=== PATIENT | female | born 1955 | race Caucasian/White ===

== ENCOUNTER 2019-02-03 11:04 | Emergency (ER) | payer OTHER, MEDICAID ==
[~2019-02-03] VITALS: Ht 167.6 cm; Wt 68.0 kg
[2019-02-03 11:14] VITALS: BP 96/44
--- NOTE | 2019-02-03 11:23 | NUR ---
PT AMBLATED TO LOBBY.
--- NOTE | 2019-02-03 11:58 | NUR ---
PT AMB TO ER BED 2
--- NOTE | 2019-02-03 12:07 | NUR ---
PT BIB SELF WITH C/O ZIYAD KNEE , BACK & NECK PAIN . PT STATED TO HAVE CHRONIC PAIN MANY YEARS. MED HX: LEFT KNEE SURGERY, LAMINECTOMY OF C6, OSTEOARTHRITIS. STATES TO HAVE RA . PT STATES HAVING APPOINTMENT FOR PRE-OPERATIVE KNEE REPLACEMENT PROCEDURE TOMORROW. PCP SENT THE PT TO VISIT ER. PT TAKING IBUPROFEN AT HOME FOR PAIN, WAS OFF FROM PAIN MEDS WEEKS AGO BY PCP. DENIES ANY ALLERGIC TO MEDS . PT SITTING ON CHAIR. FEELS COMFORTABLE TO SIT IN CHAIR. WILL CONTINUE TO MONITOR PT. HX- RA
[2019-02-03] MEDS ORDERED: KETOROLAC 60 MG/2 ML VIAL IM ONE (13:35)
[2019-02-03] MEDS ORDERED: HYDROcodone/APAP 5/325 MG 1 TAB TAB PO ONE (13:35)
--- NOTE | 2019-02-03 14:34 | NUR ---
Patient discharged with v/s stable. Written and verbal after care instructions given and explained. Patient alert, oriented and verbalized understanding of instructions. Ambulatory with steady gait. All questions addressed prior to discharge. ID band removed. Patient advised to follow up with PMD. Rx of NAPROSYN given. Patient educated on indication of medication including possible reaction and side effects. Opportunity to ask questions provided and answered. 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
[2019-02-03 14:37] VITALS: BP 100/52
== END 2019-02-03 14:37 | disposition home or self-care (01) ==
LOC: MED 11:04
DX: M25.561 Pain in right knee (principal); M25.562 Pain in left knee; G89.4 Chronic pain syndrome
CPT/HCPCS: 96372; 99283; J1885

== ENCOUNTER 2019-04-16 16:10 | Emergency (ER) | payer OTHER, MEDICAID ==
[~2019-04-16] VITALS: Ht 165.1 cm; Wt 72.6 kg
[2019-04-16 16:29] VITALS: BP 118/81
--- NOTE | 2019-04-16 16:40 | NUR ---
PT TAKEN TO BED 9.
--- NOTE | 2019-04-16 16:46 | NUR ---
PT BIB SELF TO THE ED WITH THE CHIEF C/O ABNORMAL LAB RESULTS. PT WENT PCP FOR REGULAR CHECK UP TODAY AND WAS INSTRUCTED TO COME INTO ER BECAUSE BLOOD WORK ON 04/13/19 SHOWED ELEVATED SERUM CREATININE 3.39 AND GFR 13.7. PT DENIES ANY S/S OR DISCOMFORT. NO DISTRESS NOTED. DENIES PAIN AT THIS TIME. PT ALERT AND AWAKE. PATIENT STATES "I FEEL FINE, I DONT KNOW WHY MY DOCTOR SAID I HAVE TO COME, I DONT WANT TO EVEN BE HERE". PT AMBULATES WITH STEADY GAIT. SITTING IN CHAIR IN ROOM. PMH: CHRONIC ARTHRITIS RX: NORCO, GABAPENTINE, SLEEPING PILLS NKA
--- NOTE | 2019-04-16 16:54 | NUR ---
DR ANDERSON AT BEDSIDE
--- NOTE | 2019-04-16 17:12 | NUR ---
LAB AT BEDSIDE
[2019-04-16 17:27] LABS: BASOPHILS # (AUTO) 0.1 K/uL (0.00-0.22); BASOPHILS % (AUTO) 1.2 % (0.0-2.0); EOSINOPHILS # (AUTO) 0.1 K/uL (0-0.4); EOSINOPHILS % (AUTO) 1.4 % (0.0-4.0); HEMATOCRIT 35.9 % (36-48); HEMOGLOBIN 11.9 g/dL (12.0-16.0); LYMPHOCYTES # (AUTO) 1.8 K/uL (2.5-16.5); MEAN CORPUSCULAR HEMOGLOBIN 31 pg (27-31); MEAN CORPUSCULAR HGB CONC 33 g/dL (33-37); MONOCYTES # (AUTO) 0.5 K/uL (0.8-1.0); MONOCYTES % (AUTO) 8.5 % (1.7-9.3); NEUTROPHILS # (AUTO) 3.3 K/uL (1.8-7.7); NEUTROPHILS % (AUTO) 57.9 % (42.2-75.2); PLATELET COUNT (AUTO) 265 K/uL (140-450); RED BLOOD CELL COUNT(AUTO) 3.82 MIL/uL (4.20-5.40); RED CELL DISTRIBUTION WIDTH 14.1 % (11.6-13.7); WHITE BLOOD COUNT (AUTO) 5.7 K/uL (4.8-10.8)
[2019-04-16 17:41] LABS: ANION GAP 12.7 (8-16); CARBON DIOXIDE 28.8 mmol/L (21-32); CREATININE 0.8 mg/dL (0.6-1.3); POTASSIUM 3.5 mmol/L (3.5-5.1)
[2019-04-16 17:47] LABS: ALBUMIN 3.7 g/dL (3.4-5.0); TOTAL BILIRUBIN 0.3 mg/dL (0.0-1.0)
--- NOTE | 2019-04-16 18:05 | NUR ---
Patient discharged REFUSED VITALS. Written and verbal after care instructions given and explained. Patient verbalized understanding. Ambulatory with steady gait. All questions addressed prior to discharge. Advised to follow up with PMD.
== END 2019-04-16 18:05 | disposition home or self-care (01) ==
LOC: MED 16:10
DX: R79.9 Abnormal finding of blood chemistry, unspecified (principal); Z00.01 Encounter for general adult medical examination with abnormal findings; M19.90 Unspecified osteoarthritis, unspecified site; Z98.890 Other specified postprocedural states
CPT/HCPCS: 36415; 80053; 85025; 99283